=== PATIENT | male | born 1990 | race Caucasian/White ===

== ENCOUNTER 2018-01-26 21:54 | Emergency (ER) | payer SELFPAY ==
[~2018-01-26] VITALS: Ht 175.3 cm; Wt 105.8 kg
[2018-01-26 22:02] VITALS: TEMP 98.7
[2018-01-26] MEDS ORDERED: WELLBUTRIN 100100 MG PO (22:47)
[2018-01-26] MEDS ORDERED: DESYREL 50MG50 MG PO (22:47)
[2018-01-26 23:33] VITALS: BP 119/71; PULSE 81
== END 2018-01-26 23:33 | disposition home or self-care (01) ==
LOC: COL.ER 21:54
DX: S51.811A Laceration without foreign body of right forearm, initial encounter (principal); S61.511A Laceration without foreign body of right wrist, initial encounter; F32.9 Major depressive disorder, single episode, unspecified; Z23 Encounter for immunization; W25.XXXA Contact with sharp glass, initial encounter; Y92.009 Unspecified place in unspecified non-institutional (private) residence as the place of occurrence of the external cause

== ENCOUNTER 2021-03-13 21:31 | Emergency (ER) | payer SELFPAY ==
[~2021-03-13] VITALS: Ht 177.8 cm; Wt 100.0 kg
[~2021-03-13 21:31] MED LIST: DESYREL 50MG50 MG PO; WELLBUTRIN 100100 MG PO
[2021-03-13 21:39] VITALS: TEMP 98.2
[2021-03-13 22:17] VITALS: BP 127/70; PULSE 76
== END 2021-03-13 22:00 | disposition home or self-care (01) ==
LOC: COL.ER 21:31
DX: S61.451A Open bite of right hand, initial encounter (principal); F41.9 Anxiety disorder, unspecified; Z79.899 Other long term (current) drug therapy; W55.01XA Bitten by cat, initial encounter